=== PATIENT | male | born 1965 | race Caucasian/White ===

== ENCOUNTER 2020-03-30 11:23 | Outpatient (CLI) | payer OTHER ==
[~2020-03-30 11:23] MED LIST: LISI-170 PO; METF500T17 PO; SIMV5TAB14 PO
== END 2020-03-30 23:59 | disposition home or self-care (01) ==
LOC: CVU 11:23
PROVIDERS: ATTEND Family Medicine
DX: Z02.9 Encounter for administrative examinations, unspecified (principal)